=== PATIENT | female | born 1950 ===

== ENCOUNTER 2016-03-08 15:25 | Outpatient (CLI) | payer OTHER | END 2016-03-08 15:26 | disposition home or self-care (01) | LOC: LABHHL 15:25 | PROVIDERS: ATTEND Internal Medicine Gastroenterology | DX: Z12.11 Encounter for screening for malignant neoplasm of colon (principal) | CPT/HCPCS: 88305 ==

== ENCOUNTER 2017-01-29 15:27 | Outpatient (CLI) | payer MEDICARE ==
--- NOTE | 2017-01-30 10:45 | Mammography Report ---
BILATERAL DIGITAL SCREENING MAMMOGRAM with CAD: 01/29/17 15:27:00 CLINICAL: Routine screening. COMPARISON: 01/27/16 FINDINGS: There are bilateral scattered areas of fibroglandular density.No mass, architectural distortion or suspicious calcifications. IMPRESSION: No mammographic evidence of malignancy. BI-RADS CATEGORY: 1 -- Negative RECOMMENDATION: Routine mammographic screening in one year. COMMENT: Patient follow-up letters are generated by our [employer] application.
== END 2017-01-29 15:28 | disposition home or self-care (01) ==
LOC: SPVWC 15:27
PROVIDERS: ATTEND Internal Medicine
DX: Z12.31 Encounter for screening mammogram for malignant neoplasm of breast (principal)
CPT/HCPCS: 77067; G0202